=== PATIENT | female | born 1970 | race Caucasian/White ===

== ENCOUNTER → 2021-09-23 | Outpatient (CLI) | payer SELFPAY ==
--- NOTE | 2021-09-26 13:30 | Diagnostic Imaging Report ---
PROCEDURE: MRI left joint lower extremity without contrast. TECHNIQUE: Multiplanar, multisequence non contrast-enhanced MRI of the left lower extremity was accomplished. INDICATION: Status post fall with medial knee pain EXAMINATION: Left knee MRI without contrast 09/23/2021 FINDINGS: The extensor mechanism is intact. The ACL and PCL intact. The MCL and the lateral collateral ligamentous complex appear intact. There is myxoid degeneration within the posterior horn of the medial meniscus with a discrete tear not seen. The lateral meniscus is intact. There is moderate loss of cartilage throughout the medial and lateral joint compartments. There is moderate patellofemoral narrowing with moderate to severe loss of cartilage over the medial facet of the patella. Subchondral edema in the patella is noted. There is a small underlying joint effusion. There is a tiny slitlike Garcia's cyst. There is diffuse nonspecific edema within the anterior and somewhat medial aspects of the knee overlying the medial retinaculum. The medial retinaculum is intact. There is mild edema within the fat deep to the medial retinaculum and abutting the medial border of the patella. This is nonspecific but can be seen in impingement type process. Correlate with patient's symptoms. IMPRESSION: 1. Ligaments, tendons and menisci intact. 2. Tricompartmental degenerative disease. 3. Nonspecific edema throughout the anterior and medial aspects of the knee, see above discussion. Dictated by: Dictated on workstation # [id number]
== END ==
LOC: RAD 08:45
PROVIDERS: ATTEND Student in an Organized Health Care Education/Training Program
DX: M17.12 Unilateral primary osteoarthritis, left knee (principal); W19.XXXA Unspecified fall, initial encounter
CPT/HCPCS: 73721